=== PATIENT | male | born 1950 | race Hispanic/Latino ===

== ENCOUNTER → 2020-04-02 | Outpatient (CLI) | payer MEDICARE | END | disposition home or self-care (01) | LOC: OIH 09:28 | PROVIDERS: ATTEND Internal Medicine Cardiovascular Disease | DX: R06.02 Shortness of breath (principal) | CPT/HCPCS: 71046 ==

== ENCOUNTER 2022-12-19 13:00 | Emergency (ER) | payer OTHER, MEDICARE ==
[~2022-12-19] VITALS: Ht 167.6 cm; Wt 68.0 kg
[2022-12-19 13:07] VITALS: BP 137/81
[2022-12-19 13:56] LABS: APPEARANCE,URINE CLEAR (CLEAR); BILIRUBIN,URINE NEGATIVE (NEGATIVE); COLOR,URINE LIGHT-YELLOW (YELLOW); GLUCOSE, URINE (UA) >=1000 mg/dL (NEGATIVE); KETONES,URINE NEGATIVE (NEGATIVE); LEUKOCYTE ESTERASE ,URINE NEGATIVE Leu/uL (NEGATIVE); NITRATE,URINE NEGATIVE (NEGATIVE); OCCULT BLOOD,URINE NEGATIVE (NEGATIVE); PROTEIN,URINE 20 mg/dL (NEGATIVE); UROBILINOGEN,URINE 0.2 mg/dL (0.2-1.0)
[2022-12-19 14:22] LABS: SQUAMOUS EPITHELIAL CELL,UR RARE /HPF (0-2); WBC,URINE 0-1 /HPF (0-1)
[2022-12-19 14:31] LABS: BASOPHILS % (AUTO) 0.7 % (0.0-5.0); EOSINOPHILS % (AUTO) 0.3 % (0.0-8.0); HEMATOCRIT 46.9 % (42-54); MEAN CORPUSCULAR HEMOGLOBIN 29.2 pg (27.0-33.0); MEAN CORPUSCULAR HGB CONC 33.3 g/dL (32.0-36.0); MEAN CORPUSCULAR VOLUME 87.8 fL (79-99); NEUTROPHILS % (AUTO) 80.6 % (40.0-77.0); PLATELET COUNT (AUTO) 220 K/uL (130-400); RED BLOOD CELL COUNT(AUTO) 5.34 MIL/uL (4.50-6.20); RED CELL DISTRIBUTION WIDTH 12.7 % (11.0-15.5); WHITE BLOOD COUNT (AUTO) 9.1 K/uL (4.8-10.8)
[2022-12-19 14:41] LABS: CREATININE 1.2 mg/dL (0.5-1.5); POTASSIUM 4.2 mmol/L (3.5-5.1)
[2022-12-19 14:48] LABS: ALBUMIN 3.4 g/dL (3.5-5.0); TOTAL PROTEIN, SERUM 7.6 g/dL (6.0-8.3)
[2022-12-19] MEDS ORDERED: ACETAMINOPHEN 325 MG TAB PO ONE (16:00)
== END 2022-12-19 15:47 | disposition home or self-care (01) ==
LOC: EDH 13:00
DX: S16.1XXA Strain of muscle, fascia and tendon at neck level, initial encounter (principal); S00.83XA Contusion of other part of head, initial encounter; S20.219A Contusion of unspecified front wall of thorax, initial encounter; I10 Essential (primary) hypertension; N40.0 Benign prostatic hyperplasia without lower urinary tract symptoms; E10.9 Type 1 diabetes mellitus without complications; V89.2XXA Person injured in unspecified motor-vehicle accident, traffic, initial encounter; Y93.I9 Activity, other involving external motion; Y92.89 Other specified places as the place of occurrence of the external cause; Y99.8 Other external cause status
CPT/HCPCS: 36415; 70450; 71045; 71250; 72125; 74176; 80053; 81001; 82550; 84484; 85025; 93005

== ENCOUNTER 2024-05-20 12:27 | Emergency (ER) | payer MEDICARE ==
[~2024-05-20] VITALS: Ht 170.2 cm; Wt 65.8 kg
[2024-05-20] MEDS ORDERED: DICL20GE TP (12:47)
[2024-05-20] MEDS ORDERED: ACET-2079 PO (12:47)
[2024-05-20] MEDS ORDERED: MELO-108 PO (12:47)
[2024-05-20] MEDS ORDERED: ORPH100 PO (12:47)
[2024-05-20] MEDS ORDERED: LIDO1ADH71 TP (12:47)
[2024-05-20] MEDS: HYDROcodone/APAP 5/325 1 TAB TABLET PO ONE (13:19)
[2024-05-20] MEDS: ketOROlac 60 MG VIAL (30MG/ML) IM ONE (13:20)
[2024-05-20 13:24] VITALS: BP 120/81; PULSE 89; RESP 18; TEMP 98.2; O2SAT 97
== END 2024-05-20 13:25 | disposition home or self-care (01) ==
LOC: EDH 12:27
DX: S29.012A Strain of muscle and tendon of back wall of thorax, initial encounter (principal); E11.9 Type 2 diabetes mellitus without complications; E78.00 Pure hypercholesterolemia, unspecified; M19.90 Unspecified osteoarthritis, unspecified site; Z98.890 Other specified postprocedural states; X58.XXXA Exposure to other specified factors, initial encounter; Y93.89 Activity, other specified; Y92.89 Other specified places as the place of occurrence of the external cause; Y99.8 Other external cause status
CPT/HCPCS: 99283; 96372; J1885